=== PATIENT | female | born 1940 ===

== ENCOUNTER 2018-03-02 01:05 | Inpatient (IN) | payer MEDICARE ==
[2018-03-01 14:59] LABS: INR 1.05
[2018-03-02] VITALS (11 sets, daily range): BP systolic 95–155; BP diastolic 70–90
[~2018-03-02] VITALS: Ht 157.5 cm; Wt 92.1 kg
[~2018-03-02 01:05] MED LIST: ASPI-1471 PO; ASPI-757 PO; ASPI81TA94 PO; GLIP-152 PO; LEVO50TA80 PO; LISI-362 PO; METF-450 PO; OXYC-865 PO; ROPI0.2530 PO
[2018-03-02] MEDS ORDERED: ceFAZolin(*) 2GM/D5W 50ML 50 ML IVPB ONE (07:45)
[2018-03-02] MEDS ORDERED: MIDAZOLAM 2 MG/2 ML VIAL IVP PRN (07:45)
[2018-03-02] MEDS ORDERED: PREGABALIN 75 MG CAPSULE PO ONE (07:45)
[2018-03-02] MEDS ORDERED: BACITRACIN 50000 UNIT/VIAL 100,000 UNIT in NS 0.9% 3000 ML IRRIGATION BAG 3,000 ML IR ONE (07:45)
[2018-03-02] MEDS ORDERED: ACETAMINOPHEN 500 MG TAB PO ONE (07:45)
[2018-03-02] MEDS ORDERED: cloNIDine EPIDUR INJ 100MCG/ML 40 MCG, ROPIVACAINE 0.5% 20 ML VIAL 25 ML, EPINEPHrine H... EPI ONE (07:45)
[2018-03-02] MEDS ORDERED: LIDOCAINE/SOD BICARB 8.4% SYR ID ONE (07:45)
[2018-03-02] MEDS ORDERED: NORMOSOL R SOLN(*) 1000 ML BAG 1,000 ML IV PRN (07:45)
[2018-03-02] MEDS ORDERED: CELECOXIB 200 MG CAP PO ONE (07:45)
[2018-03-02] MEDS ORDERED: TRANEXAMIC AC 1000 MG/10ML SDV 1,000 MG in DEXTROSE 5% 50 ML BAG 50 ML IV ONE (07:45)
[2018-03-02] MEDS ORDERED: FAMOTIDINE 20 MG TAB PO ONE (07:45)
[2018-03-02] MEDS ORDERED: fentaNYL CITR 100 MCG/2 ML AMP ONE (10:25)
[2018-03-02] MEDS ORDERED: LIDOCAINE MPF 1% 5 ML VIAL ONE (10:26)
[2018-03-02] MEDS ORDERED: PROPOFOL EMUL(*) 10MG/ML 20 ML 20 ML ONE (10:26)
[2018-03-02] MEDS ORDERED: ONDANSETRON 4 MG/2 ML VIAL ONE ×2 (10:26→16:21)
[2018-03-02] MEDS ORDERED: DEXAMETHASONE SOD 4 MG/ML VIAL ONE (10:26)
[2018-03-02] MEDS ORDERED: KETAMINE HCL 200 MG/20 ML MDV ONE (13:11)
[2018-03-02] MEDS ORDERED: SUGAMMADEX SOD 200 MG/2 ML SDV ONE (13:12)
[2018-03-02] MEDS ORDERED: ROCURONIUM BROM 10 MG/ML 5 ML ONE (13:30)
[2018-03-02] MEDS ORDERED: HYDROmorphone HCL 2 MG/ML SDV ONE (14:16)
[2018-03-02] MEDS ORDERED: ESMOLOL 10 MG/ML 10ML SDV ONE (15:28)
[2018-03-02] MEDS ORDERED: LR 1000 ML BAG 1000 ML IV PRN (16:00)
[2018-03-02] MEDS ORDERED: PROMETHAZINE 25 MG/ML 1 ML AMP IVP PRN (16:00)
[2018-03-02] MEDS ORDERED: BISACODYL 10 MG SUPP PR PRN (16:00)
[2018-03-02] MEDS ORDERED: ONDANSETRON 4 MG/2 ML VIAL IVP PRN (16:00)
[2018-03-02] MEDS ORDERED: diphenhydrAMINE 25 MG CAP PO PRN (16:00)
[2018-03-02] MEDS ORDERED: MAGNESIUM HYDROXIDE* 30ML UDCP PO PRN (16:00)
[2018-03-02] MEDS ORDERED: diphenhydrAMINE 50 MG/ML VIAL IVP PRN (16:00)
[2018-03-02] MEDS ORDERED: ZOLPIDEM TARTRATE 5 MG TAB PO PRN (16:00)
[2018-03-02] MEDS ORDERED: MAGNESIUM CITRATE 300 ML BTL PO PRN (16:00)
[2018-03-02] MEDS ORDERED: HYDROmorphone HCL 2 MG/ML SDV IVP PRN (16:00)
[2018-03-02] MEDS ORDERED: FLUSH 10 ML SYR IVP PRN (16:00)
--- NOTE | 2018-03-02 16:47 | OPERATIVE REPORT 1 ---
EVENT DATE: March 02, 2018 SURGEON: Geovanni Arnett MD ANESTHESIOLOGIST: Mayank Rawls MD ANESTHESIA: General LMA. RECEPTIONIST DOCTOR'S OFFICE: Madhu Espinoza PA-C PREOPERATIVE DIAGNOSIS Left hip osteoarthritis. POSTOPERATIVE DIAGNOSIS Left hip osteoarthritis. PROCEDURE PERFORMED Left total hip arthroplasty. FINDINGS The patient had arthritic changes associated with the hip that were amenable for a total hip replacement. ESTIMATED BLOOD LOSS About 300 mL. DRAINS None. COMPLICATIONS None. TOURNIQUET TIME Not applicable. IMPLANTS USED Carlos 56 mm cup which was a cluster hole cup with one screw which was a 6 x 5 x 35 mm screw, a standard neutral liner with a 6 standard stem and a 40 ceramic head, one dome hole plug, and one screw hole plug. SPECIMENS None. INDICATIONS AND HISTORY This patient is a 77-year-old female who presented to my clinic for evaluation of left hip arthritis. We replaced her right hip previously, and she did very well, and so she wanted to go ahead with a left total hip replacement today, March 02, 2018. The risks and benefits were discussed with the patient, and informed consent was obtained. We talked about leg length discrepancy and nerve injury associated with this specifically, dislocations, problems associated with thigh pain, and issues associated with squeaking. We also discussed minor complications associated with surgery and major complications associated with anesthesia. DESCRIPTION OF PROCEDURE As the patient was brought into the operating room, she and the procedure were both verified. She was placed supine on the operative table, then induced and intubated by Anesthesia. She was then turned in the lateral decubitus position with the left hip towards the ceiling, and then the left hip was prepped and draped in the usual fashion. A timeout was observed verifying the correct patient and procedure. The standard incision was made over the posterior aspect of the hip and through the skin and subcutaneous tissue until I cut down to the IT band and the gluteal musculature. Once I was able to cut through that, I was then able to get down to the short external rotators of the hip through the standard posterior approach. I then was able to cut the piriformis and tag it for later repair. I then was able to cut the rest of the external rotators and cauterize bleeders to this area. I then cut the capsule without any difficulty in a standard T fashion, and then I tagged that for later repair. We then dislocated the hip, cut the femoral neck without any major difficulty, and then removed it without any issues. I then put acetabular retractors 360 degrees around the acetabulum and then was able to retract all this area and then resect the labrum off the area. Once I had good exposure of the acetabulum, I was then able to commence reaming. We started reaming at about a 45 mm reamer and then went up to a 55 mm reamer until we had good concentric reaming and then put in the cup without any difficulty, which was a 56 interference-fit Trabecular Metal cluster-hole cup. I then put in dome hole plug and one screw hole plug. I then put in a screw up in the superior lateral quadrant which helped secure the cup even better and then put in one more screw hole plug. I then was able to put in the standard liner without any difficulty and irrigate with copious amounts of saline, which I had throughout the case with pulsatile lavage with antibiotic mixed in. I then turned attention to the femur where I was able to internally rotate and flex the knee. I then was able to take a box cutting osteotome, then a canal finder, and then a lateralizing reamer in order to get down to canal of the femur. I then subsequently broached from a 4 to a 6. The 6 had excellent fit, and I did not want to push it to a 7.5 with the patient's frail bone, and so, therefore, we left the [address]. Intraoperative x-rays then confirmed that we had good length associated with it, and the cup and the stem were in good position. I then irrigated with copious amounts of saline, removed all the other instrumentation, then put in the final stem which was a size 6 standard stem with a 40, +0 head which was ceramic. I assembled that within the body and then hammered in until the Orozco taper fit well. I then relocated the hip and had no signs of problems or issues associated with this. Once I was able to get this all taken care of, I was then able to close the capsule with a heavy Ethibond suture. This was then followed by drill holes in the posterior aspect of the femur to reattach the piriformis. I then irrigated again, put in the joint cocktail, and then closed the IT band and the gluteal musculature with a #2 Stratafix, then 2-0 Vicryl in the fat layer, then a 2-0 Stratafix in the skin, and then a 4-0 Monocryl in a subcuticular running stitch. This was then anesthetized with ropivacaine and then dressed with Steri-Strips, gauze 4 x 4's, and a soft dressing. The patient was awakened, extubated, and transferred to the PACU in stable condition. RONN
--- NOTE | 2018-03-02 17:18 | RADIOLOGY IMAGING REPORT ---
FACILITY: [facility] - [place] PATIENT NAME: Margo Joy : 1940 MR: [id number] V: [id number] EXAM DATE: ORDERING PHYSICIAN: PHILIPPE MCDONNELL TECHNOLOGIST: [place] [facility] [place] Patient: Margo Joy : 1940 Visit/Account:[id number] Date of Sevice: 03/02/2018 HIP IN OR LEFT HISTORY: LEFT TOTAL HIP COMPARISON: None FINDINGS: Left hip arthroplasty in good alignment on this single AP view. IMPRESSION: Left hip arthroplasty in good alignment. Report Dictated By: Tobin Fang at 03/02/2018 5:11 PM Report E-Signed By: Tobin Fang at 03/02/2018 5:14 PM WSN:[id number]
--- NOTE | 2018-03-02 17:27 | RADIOLOGY IMAGING REPORT ---
FACILITY: [facility] - [place] PATIENT NAME: Margo Joy : 1940 MR: [id number] V: [id number] EXAM DATE: ORDERING PHYSICIAN: PHILIPPE MCDONNELL TECHNOLOGIST: Location: [facility] - [place] Patient: Margo Joy : 1940 Visit/Account:[id number] Date of Sevice: 03/02/2018 Study: PELVIS Indication: Status post left total hip replacement Comparison study: January 06, 2017 Findings: Single AP view of the lower pelvis demonstrates the patient is status post bilateral hip re placement. The right hip replacement is unchanged in appearance as compared to the previous study. Th ere is a new left-sided hip replacement. The metallic components of the left hip replacement appear t o be unremarkable. There is no evidence of abnormality of the pubic rami. IMPRESSION: Status post left total hip replacement. Report Dictated By: Tobin Fang at 03/02/2018 5:22 PM Report E-Signed By: Tobin Fang at 03/02/2018 5:23 PM WSN:[id number]
[2018-03-02] MEDS ORDERED: INSULIN HUM LISPRO 100 UN/ML 3 ML VIAL SUBQ PRN (19:30)
--- NOTE | 2018-03-02 19:37 | Hospitalist Progress Note ---
Subjective Progress Notes Subjective She reports some mild nausea post-op, otherwise no complaints. Reviewed PMHx and medications. Physical Exam Vital Signs Date Time Temp Pulse Resp B/P (MAP) Pulse Ox O2 Delivery O2 Flow Rate FiO2 03/02/18 18:29 97.8 84 14 140/83 (102) 94 Nasal Cannula 2.0 General Appearance: Alert, Awake Cardiovascular: Regular Rate and Rhythm Respiratory: Clear to Auscultation Assessment and Plan Problems: (1) Hypertension Status: Chronic Assessment & Plan: Monitor BPs and resume her lisinopril as needed. (2) Diabetes type 2, controlled Status: Chronic Assessment & Plan: ADA diet, resume glipizide and metformin, monitor glucoses, and use SSI as needed. (3) Hypothyroidism Status: Chronic Assessment & Plan: Continue L-thyroxine 50mcg daily. (4) Restless leg syndrome Status: Chronic Assessment & Plan: Continue ropinirole 0.25mg BID. (5) S/P hip replacement Status: Acute Assessment & Plan: She appears stable post-op. She will be on aspirin 325mg daily as per Dr. Arnett. FUNMI MAJANO MD Mar 02, 2018 19:37
[2018-03-02] MEDS: DOCUSATE SODIUM 100 MG CAP PO SCH (20:39)
[2018-03-02] MEDS: ASPIRIN 325 MG TAB PO SCH (20:39)
[2018-03-02] MEDS: ceFAZolin(*) 2GM/D5W 50ML 50 ML IVPB SCH (20:39)
[2018-03-02] MEDS ORDERED: NS(*) 0.9% 250 ML BAG 250 ML ONE (20:41)
[2018-03-03 00:20] VITALS: BP 123/69
[2018-03-03 03:14] VITALS: BP 116/64
[2018-03-03] MEDS: ceFAZolin(*) 2GM/D5W 50ML 50 ML IVPB SCH ×2 (04:50→13:07)
[2018-03-03] MEDS: LEVOTHYROXINE SOD 0.05 MG TAB PO SCH (05:27)
[2018-03-03 07:14] VITALS: BP 95/71
[2018-03-03] MEDS: glipiZIDE 5 MG TAB PO SCH ×2 (08:15→16:59)
[2018-03-03] MEDS: metFORMIN HCL 500 MG TAB PO SCH (08:15)
[2018-03-03] MEDS: LISINOPRIL 10 MG TAB PO SCH (08:16)
[2018-03-03] MEDS: DOCUSATE SODIUM 100 MG CAP PO SCH ×2 (08:17→20:42)
[2018-03-03 10:58] VITALS: BP 94/56
--- NOTE | 2018-03-03 12:03 | Hospitalist Progress Note ---
Subjective Progress Notes Subjective She has no complaints this morning. She had no acute events overnight. Patient Complains of: Cardiovascular: No: Chest Pain Respiratory: No: Shortness of Breath Physical Exam Vital Signs Date Time Temp Pulse Resp B/P (MAP) Pulse Ox O2 Delivery O2 Flow Rate FiO2 03/03/18 10:58 98.3 63 16 94/56 (69) 93 Room Air 03/03/18 07:14 1.5 Intake and Output 03/03/18 00:59 Intake Total 2200 ml Balance 2200 ml Intake Oral 200 ml IV Total 2000 ml # Voids 1 General Appearance: Alert, Awake, No Acute Distress, Afebrile Neuro: No Gross deficits Cardiovascular: Regular Rate and Rhythm Respiratory: No Respiratory Distress, Clear to Auscultation GI: Soft and Non-Tender Psych: Alert & Oriented X3, Appropriate Mood & Affect Result Diagram: 03/03/1852203/03/18522 Assessment and Plan Problems: (1) S/P hip replacement Status: Acute Assessment & Plan: She appears stable post-op. She will be on aspirin 325mg daily as per Dr. Arnett. (2) Hypertension Status: Chronic Assessment & Plan: Monitor BPs and resume her lisinopril as needed. (3) Diabetes type 2, controlled Status: Chronic Assessment & Plan: ADA diet, resume glipizide and metformin, monitor glucoses, and use SSI as needed. (4) Hypothyroidism Status: Chronic Assessment & Plan: Continue L-thyroxine 50mcg daily. (5) Restless leg syndrome Status: Chronic Assessment & Plan: Continue ropinirole 0.25mg daily. Exam Sepsis Risk: No Definite Risk Problem Qualifiers (1) S/P hip replacement: Laterality: left Qualified Codes: Z96.642 - Presence of left artificial hip joint (2) Hypertension: Hypertension type: essential hypertension Qualified Codes: I10 - Essential (primary) hypertension BILLY QUINTANA Mar 03, 2018 12:03
[2018-03-03 14:32] VITALS: Ht 157.5 cm; Wt 92.1 kg
[2018-03-03 14:45] VITALS: BP 100/49
[2018-03-03 20:36] VITALS: BP 112/64
[2018-03-03] MEDS: ASPIRIN 325 MG TAB PO SCH (20:43)
[2018-03-04] VITALS (9 sets, daily range): BP systolic 96–148; BP diastolic 54–83
[2018-03-04] MEDS: LEVOTHYROXINE SOD 0.05 MG TAB PO SCH (05:52)
[2018-03-04] MEDS: glipiZIDE 5 MG TAB PO SCH ×2 (08:07→17:02)
[2018-03-04] MEDS: LISINOPRIL 10 MG TAB PO SCH (09:00)
[2018-03-04] MEDS: DOCUSATE SODIUM 100 MG CAP PO SCH ×2 (09:20→20:56)
[2018-03-04] MEDS: metFORMIN HCL 500 MG TAB PO SCH (09:20)
--- NOTE | 2018-03-04 09:45 | Hospitalist Progress Note ---
Subjective Progress Notes Subjective She has no complaints this morning. She had no acute events overnight. Patient Complains of: Cardiovascular: No: Chest Pain Respiratory: No: Shortness of Breath Physical Exam Vital Signs Date Time Temp Pulse Resp B/P (MAP) Pulse Ox O2 Delivery O2 Flow Rate FiO2 03/04/18 09:21 61 115/54 (74) 03/04/18 07:47 97.4 16 97 Nasal Cannula 1.0 Intake and Output 03/04/18 07:00 Intake Total 960 ml Balance 960 ml Intake Oral 960 ml # Voids 4 General Appearance: Alert, Awake, No Acute Distress, Afebrile Neuro: No Gross deficits Cardiovascular: Regular Rate and Rhythm Respiratory: No Respiratory Distress, Clear to Auscultation Psych: Alert & Oriented X3, Appropriate Mood & Affect Result Diagram: 03/04/18 0517 03/03/18 0523 Assessment and Plan Problems: (1) S/P hip replacement Status: Acute Assessment & Plan: She appears stable post-op. She will be on aspirin 325mg d aily as per Dr. Arnett. (2) Hypertension Status: Chronic Assessment & Plan: Monitor BPs and resume her lisinopril as needed. (3) Diabetes type 2, controlled Status: Chronic Assessment & Plan: ADA diet, resume glipizide and metformin, monitor glucoses, and use SSI as needed. (4) Hypothyroidism Status: Chronic Assessment & Plan: Continue L-thyroxine 50mcg daily. (5) Restless leg syndrome Status: Chronic Assessment & Plan: Continue ropinirole 0.25mg daily. Exam Sepsis Risk: No Definite Risk Problem Qualifiers (1) S/P hip replacement: Laterality: left Qualified Codes: Z96.642 - Presence of left artificial hip joint (2) Hypertension: Hypertension type: essential hypertension Qualified Codes: I10 - Essential (primary) hypertension BILLY QUINTANA LINE UP MACHINE OPERATOR Mar 04, 2018 09:45
[2018-03-04] MEDS: ASPIRIN 325 MG TAB PO SCH (20:56)
[2018-03-05 00:20] VITALS: BP 119/67
[2018-03-05 04:17] VITALS: BP 123/66
[2018-03-05] MEDS: LEVOTHYROXINE SOD 0.05 MG TAB PO SCH (05:35)
[2018-03-05 07:45] VITALS: BP 127/69
[2018-03-05] MEDS: LISINOPRIL 10 MG TAB PO SCH ×2 (09:00→09:01)
[2018-03-05] MEDS: metFORMIN HCL 500 MG TAB PO SCH (09:01)
[2018-03-05] MEDS: DOCUSATE SODIUM 100 MG CAP PO SCH (09:01)
[2018-03-05] MEDS: glipiZIDE 5 MG TAB PO SCH (09:01)
[2018-03-05] MEDS ORDERED: ASPI-757 PO (10:02)
--- NOTE | 2018-03-05 10:04 | Hospitalist Progress Note ---
Subjective Progress Notes Subjective She has no complaints today. She had no acute events overnight. She would like to go to SNF for further rehab. Patient Complains of: Cardiovascular: No: Chest Pain Respiratory: No: Shortness of Breath Physical Exam Vital Signs Date Time Temp Pulse Resp B/P (MAP) Pulse Ox O2 Delivery O2 Flow Rate FiO2 03/05/18 07:45 98.8 88 18 127/69 (88) Room Air 03/05/18 04:17 91 1.0 Intake and Output 03/05/18 07:00 Intake Total 200 ml Balance 200 ml Intake Oral 200 ml # Voids 5 General Appearance: Alert, Awake, No Acute Distress, Afebrile Neuro: No Gross deficits Cardiovascular: Regular Rate and Rhythm Respiratory: No Respiratory Distress, Clear to Auscultation Extremities: Warm, Perfused; No Edema Psych: Alert & Oriented X3 Result Diagram: 03/05/1852203/03/18522 Assessment and Plan Problems: (1) S/P hip replacement Status: Acute Assessment & Plan: She appears stable post-op. She will be on aspirin 325mg daily as per Dr. Arnett. (2) Hypertension Status: Chronic Assessment & Plan: Monitor BPs and resume her lisinopril. (3) Diabetes type 2, controlled Status: Chronic Assessment & Plan: ADA diet, resume glipizide and metformin, monitor glucoses, and use SSI as needed. (4) Hypothyroidism Status: Chronic Assessment & Plan: Continue L-thyroxine 50mcg daily. (5) Restless leg syndrome Status: Chronic Assessment & Plan: Continue ropinirole 0.25mg daily. Exam Sepsis Risk: No Definite Risk Problem Qualifiers (1) S/P hip replacement: Laterality: left Qualified Codes: Z96.642 - Presence of left artificial hip joint (2) Hypertension: Hypertension type: essential hypertension Qualified Codes: I10 - Essential ( primary) hypertension BILLY QUINTANA Mar 05, 2018 10:04
[2018-03-05] MEDS ORDERED: INFLUENZA VIRUS VAC 0.5ML SYR IM ONLY ONE (11:00)
[2018-03-05] MEDS ORDERED: PER PO (11:29)
== END 2018-03-05 11:50 | disposition swing bed (61) | DRG 470 ==
LOC: OR 01:05 → MED 18:25
PROVIDERS: ADMIT Orthopaedic Surgery; ATTEND Orthopaedic Surgery
PROC: 0SRB04Z Replacement of Left Hip Joint with Ceramic on Polyethylene Synthetic Substitute, Open Approach (ICD-10-PCS; principal; 2018-03-02 13:37)
DX: M16.12 Unilateral primary osteoarthritis, left hip (principal); E11.9 Type 2 diabetes mellitus without complications; E03.9 Hypothyroidism, unspecified; G25.81 Restless legs syndrome; I10 Essential (primary) hypertension; Z79.84 Long term (current) use of oral hypoglycemic drugs; Z90.49 Acquired absence of other specified parts of digestive tract; Z90.710 Acquired absence of both cervix and uterus; Z96.641 Presence of right artificial hip joint; Z23 Encounter for immunization
CPT/HCPCS: 36415; 36416; 72170; 82310; 82374; 82435; 82565; 82947; 82948; 84132; 84295; 84520; 85014; 85018; 85610; 86850; 86900; 86901; 90674; 97161; C1713; C1776; J0171; J0690; J0735; J1100; J1170; J1885; J2001; J2405; J2704; J2795; J3010; J3490; J7050; J7060